=== PATIENT | male | born 1945 | race Caucasian/White ===

== ENCOUNTER 2019-09-15 07:39 | Day surgery (SDC) | payer MEDICARE, OTHER ==
[~2019-09-15] VITALS: Ht 188 cm; Wt 68.5 kg
[~2019-09-15 07:39] MED LIST: ASPI-496 PO; CALCIUM, MAG, ZINC PO; FINA5TAB4 PO; FOLI-17 PO; LEVO75TA5 PO; LUTE40CA PO; MULT-395 PO; OMEG1CAP26 PO; POTASSIUM PO; RANI300T PO; SOTA80TA PO; TAMS-11 PO; UBID200C35 PO; VALA500T PO; [UNRECOGNIZED DRUG - CODE] PO
[2019-09-15 08:12] VITALS: BP 119/66
[2019-09-15] MEDS ORDERED: CIPR500T87 PO (08:12)
[2019-09-15] MEDS ORDERED: LACTATED RINGERS 1,000 ML IV SCH (08:15)
[2019-09-15] MEDS ORDERED: CEFTRIAXONE PMX 2GM/50ML 50 ML IV SCH (08:30)
== END 2019-09-15 09:15 | disposition home or self-care (01) ==
LOC: OUT 07:39
PROVIDERS: ATTEND Urology
DX: R33.9 Retention of urine, unspecified (principal); Z53.8 Procedure and treatment not carried out for other reasons; D69.6 Thrombocytopenia, unspecified; N39.0 Urinary tract infection, site not specified; Z79.890 Hormone replacement therapy; Z79.899 Other long term (current) drug therapy; Z87.891 Personal history of nicotine dependence
CPT/HCPCS: J0696; J7120

== ENCOUNTER 2020-06-16 10:16 | Inpatient (IN) | payer MEDICARE, OTHER ==
[~2020-06-16] VITALS: Ht 188 cm; Wt 71.0 kg
[~2020-06-16 10:16] MED LIST changes: +CIPR500T87 PO; -VALA500T PO; +VALA500T8 PO
--- NOTE | 2020-06-16 11:15 | NUR ---
IVs STARTED. ABLE TO DRAW BLOOD OFF OF IV START. PT ON [employer]ONWORKING AND VITALS MONITORS.
[2020-06-16 11:31] LABS: INTERNATIONAL NORMALIZED RATIO 1.13 (0.93-1.1)
--- NOTE | 2020-06-16 11:32 | NUR ---
REPORT GIVEN TO PRE-OP TECH. SECURITY CALLED PT STATED HE WANTS TO LOCK A FEW BEONGINGS DURING HOSPITAL STAY.
--- NOTE | 2020-06-16 11:43 | NUR ---
PT GOING TO SURGERY AT THIS TIME. PT NAKED UNDER GOWN. ALL JEWELRY RMOVED. PT BELONGINGS BAGGED UP AND TAGGED. PT CHANGED HIS MIND ABOUT SECURING ITEMS WITH SECURITY. PT STATED ERP DID RAPID COVID SWAB ALREADY.
[2020-06-16 11:53] LABS: MD YES; MEAN CORPUSCULAR HEMOGLOBIN 35.2 pg (27.5-34.5); MEAN PLATELET VOLUME 8.4 fL (7.4-10.4); PLATELET COUNT 72 x10^3/uL (130-400); RED BLOOD COUNT 2.51 x10^6/uL (4.38-5.82); RED CELL DISTRIBUTION WIDTH 27.3 % (9.4-14.8)
[2020-06-16] MEDS ORDERED: CHLORHEXIDINE 15 ML UDC MM ONE (12:00)
[2020-06-16 12:01] LABS: BAND#(MANUAL) 1.18 x10^3/uL; BANDS%(MANUAL) 19 % (0-7); BASOS#(MANUAL) 0.12 x10^3/uL (0-0.1); BASOS% (MANUAL) 2 % (0-1); LYMPH#(MANUAL) 0.68 x10^3/uL (1-3.4); LYMPHS% (MANUAL) 11 % (22-44); METAMYELOCYTES# (MANUAL) 0.06 x10^3/uL (0-0); METAMYELOCYTES% (MANUAL) 1 % (0-1); MONOS#(MANUAL) 0.31 x10^3/uL (0.3-2.7); MONOS% (MANUAL) 5 % (2-9); MYELOCYTES# (MANUAL) 0.12 x10^3/uL (0-0); MYELOCYTES% (MANUAL) 2 % (0-0); SEG#(MANUAL) 3.66 x10^3/uL (1.8-6.8); SEGS% (MANUAL) 59 % (42-75)
[2020-06-16 12:02] LABS: OTHER CELLS # (MANUAL) 0.06 x10^3/uL (0-0); OTHER CELLS % (MANUAL) 1 % (0-0)
[2020-06-16 12:03] LABS: ANISOCYTOSIS 2+; BASOPHILLIC STIPPLING 1+; POLYCHROMASIA 1+
[2020-06-16 12:09] LABS: <PLATELET ESTIMATE> DECREASED; SCHISTOCYTES 1+
[2020-06-16 12:11] LABS: <PLT MORPHOLOGY> NORMAL PLT MORPH
[2020-06-16 12:15] LABS: ANION GAP 7 mmol/L (5-15); CALCIUM 8.5 mg/dL (8.5-10.1); CHLORIDE 103 mmol/L (98-107); CREATININE 1.06 mg/dL (0.7-1.3)
[2020-06-16] MEDS ORDERED: SUCCINYLCHOLINE 20 MG/ML, 10ML ONE (12:31)
[2020-06-16] MEDS ORDERED: ONDANSETRON 2MG/ML, 2ML ONE (12:31)
[2020-06-16] MEDS ORDERED: CEFAZOLIN 1,000 MG ONE (12:31)
[2020-06-16] MEDS ORDERED: PROPOFOL 10 MG/ML, 20ML ONE (12:31)
[2020-06-16] MEDS ORDERED: ALBUTEROL SULFATE 2.5 MG/3 ML NPPB PRN (14:00)
[2020-06-16] MEDS ORDERED: FENTANYL PF 100 MCG/2ML IV PRN (14:00)
[2020-06-16] MEDS ORDERED: HYDROmorphone 1 MG/ML, 1ML INJ IV PRN (14:00)
[2020-06-16] MEDS ORDERED: MEPERIDINE/PF 25MG/0.5ML IVPush PRN (14:00)
[2020-06-16] MEDS ORDERED: PROMETHAZINE 25 MG/ML, 1ML IV PRN (14:00)
[2020-06-16] MEDS ORDERED: KETOROLAC 30 MG/1 ML IV PRN (14:00)
[2020-06-16] MEDS ORDERED: OXYcodone 5 MG/5 ML ORAL.SOL UDC PO PRN (14:00)
[2020-06-16] MEDS ORDERED: LABETALOL 5MG/ML, 20ML IV PRN (14:00)
[2020-06-16] MEDS ORDERED: hydrALAzine 20 MG/ML, 1ML IV PRN (14:00)
[2020-06-16] MEDS ORDERED: DIAZEPAM 5 MG/ML, 2ML IV PRN ×2 (14:00)
[2020-06-16] MEDS ORDERED: METOCLOPRAMIDE 5 MG/ML, 2ML IV PRN (14:00)
[2020-06-16] MEDS ORDERED: ONDANSETRON 2MG/ML, 2ML IVPush PRN ×2 (14:00→14:30)
[2020-06-16] MEDS ORDERED: SOTALOL 80MG TABLET PO PRN (14:30)
[2020-06-16] MEDS ORDERED: OPIUM/BELLADONNA SUPP.RECT 16.2-30 MG PR PRN (14:30)
[2020-06-16 15:21] LABS: PLATELET (PFA) 85 x10^3/uL (130-400)
[2020-06-16 15:24] LABS: ALBUMIN 3.6 g/dL (3.4-5.0); ANION GAP 6 mmol/L (5-15); CALCIUM 8.6 mg/dL (8.5-10.1); CHLORIDE 105 mmol/L (98-107); CREATININE 0.99 mg/dL (0.7-1.3)
[2020-06-16 16:02] VITALS: BP 130/69
[2020-06-16 16:03] LABS: PARTIAL THROMBOPLASTIN TIME 27 Seconds (25-31)
[2020-06-16] MEDS: D5%-LACTATED RINGERS 1,000 ML IV SCH (16:24)
[2020-06-16 16:45] LABS: ALBUMIN 3.5 g/dL (3.4-5.0); BILIRUBIN, DIRECT 0.5 mg/dL (0.1-0.2)
[2020-06-16 16:47] LABS: BILIRUBIN,INDIRECT 3.9 mg/dL (0.0-2.0); BILIRUBIN,TOTAL 4.4 mg/dL (0.2-1.0)
[2020-06-16 16:56] LABS: MICROSCOPIC AUTO
[2020-06-16 19:07] VITALS: BP 116/57
[2020-06-16] MEDS ORDERED: FAMOTIDINE 40 MG TABLET PO SCH (21:00)
[2020-06-17 00:32] VITALS: BP 110/58
[2020-06-17 03:47] VITALS: BP 107/55
[2020-06-17] MEDS: D5%-LACTATED RINGERS 1,000 ML IV SCH (04:16)
[2020-06-17 06:25] LABS: ALANINE AMINOTRANSFERASE 16 U/L (12-78); ALBUMIN 3.2 g/dL (3.4-5.0); ANION GAP 6 mmol/L (5-15); CALCIUM 8.5 mg/dL (8.5-10.1); CHLORIDE 106 mmol/L (98-107); CREATININE 0.95 mg/dL (0.7-1.3); INTERNATIONAL NORMALIZED RATIO 1.1 (0.93-1.1); PROTHROMBIN TIME 11.7 Seconds (9.6-11.5)
[2020-06-17 06:52] LABS: ALKALINE PHOSPHATASE 49 U/L (45-117); BILIRUBIN,TOTAL 4.2 mg/dL (0.2-1.0); TOTAL PROTEIN 5.7 g/dL (6.4-8.2)
[2020-06-17 06:55] LABS: MD YES; MEAN PLATELET VOLUME 8.6 fL (7.4-10.4); PLATELET COUNT 82 x10^3/uL (130-400); RED BLOOD COUNT 2.49 x10^6/uL (4.38-5.82); RED CELL DISTRIBUTION WIDTH 27.6 % (9.4-14.8)
[2020-06-17 07:46] LABS: <PLATELET ESTIMATE> DECREASED; <PLT MORPHOLOGY> NORMAL PLT MORPH; ANISOCYTOSIS 2+; BAND#(MANUAL) 0.14 x10^3/uL; BANDS%(MANUAL) 3 % (0-7); LYMPH#(MANUAL) 1.36 x10^3/uL (1-3.4); LYMPHS% (MANUAL) 29 % (22-44); MONOS#(MANUAL) 0.14 x10^3/uL (0.3-2.7); MONOS% (MANUAL) 3 % (2-9); POLYCHROMASIA 1+; SEG#(MANUAL) 3.06 x10^3/uL (1.8-6.8); SEGS% (MANUAL) 65 % (42-75)
[2020-06-17 07:47] LABS: BASOPHILLIC STIPPLING 1+
[2020-06-17 08:00] VITALS: BP 114/55
[2020-06-17] MEDS ORDERED: CALCIUM PO SCH (09:00)
[2020-06-17] MEDS ORDERED: FOLIC ACID 1 MG TABLET PO SCH (09:00)
[2020-06-17] MEDS ORDERED: UBIDECARENONE 200 MG PO SCH (09:00)
[2020-06-17] MEDS ORDERED: MAG PO SCH (09:00)
[2020-06-17] MEDS ORDERED: LEVOTHYROXINE 75 MCG TABLET PO SCH (09:00)
[2020-06-17] MEDS ORDERED: ZINC PO SCH (09:00)
[2020-06-17] MEDS ORDERED: POTASSIUM 550 MG PO SCH (09:00)
[2020-06-17] MEDS ORDERED: MULTIVITAMIN 1 TABLET PO SCH (09:00)
[2020-06-17 13:09] VITALS: BP 112/57
[2020-06-17 16:38] VITALS: BP 137/75
== END 2020-06-17 16:50 | disposition home or self-care (01) | DRG 908 ==
LOC: OR 11:17 → ORIP 14:09 → 4NE 15:54
PROVIDERS: ADMIT Urology; ATTEND Family Medicine
PROC: 0W3R8ZZ Control Bleeding in Genitourinary Tract, Via Natural or Artificial Opening Endoscopic (ICD-10-PCS; 2020-06-16)
PROC: 30233R1 Transfusion of Nonautologous Platelets into Peripheral Vein, Percutaneous Approach (ICD-10-PCS; 2020-06-16)
PROC: 30233N1 Transfusion of Nonautologous Red Blood Cells into Peripheral Vein, Percutaneous Approach (ICD-10-PCS; 2020-06-16)
PROC: 0T9B70Z Drainage of Bladder with Drainage Device, Via Natural or Artificial Opening (ICD-10-PCS; 2020-06-16)
PROC: 0TCB8ZZ Extirpation of Matter from Bladder, Via Natural or Artificial Opening Endoscopic (ICD-10-PCS; principal; 2020-06-16 12:00)
DX: N99.820 Postprocedural hemorrhage of a genitourinary system organ or structure following a genitourinary system procedure (principal); D68.9 Coagulation defect, unspecified; N40.0 Benign prostatic hyperplasia without lower urinary tract symptoms; I48.91 Unspecified atrial fibrillation; K21.9 Gastro-esophageal reflux disease without esophagitis; K76.89 Other specified diseases of liver; K80.20 Calculus of gallbladder without cholecystitis without obstruction; N32.89 Other specified disorders of bladder; R31.0 Gross hematuria; Z87.891 Personal history of nicotine dependence; N40.1 Benign prostatic hyperplasia with lower urinary tract symptoms; Z90.79 Acquired absence of other genital organ(s); E03.9 Hypothyroidism, unspecified; D69.6 Thrombocytopenia, unspecified; D53.9 Nutritional anemia, unspecified; Y83.8 Other surgical procedures as the cause of abnormal reaction of the patient, or of later complication, without mention of misadventure at the time of the procedure
CPT/HCPCS: 36415; 36430; 71045; 76700; 80048; 80053; 80074; 80076; 81001; 82040; 82390; 82525; 82607; 83010; 83615; 84443; 85014; 85018; 85025; 85049; 85576; 85610; 85730; 86850; 86900; 86923; 87086; 87635; 87806; 93005; 99285; G0378; J0690; J2405; J2704; G0475; J0330; J7121; P9016; P9035